=== PATIENT | male | born 1985 ===

== ENCOUNTER 2021-05-11 07:10 | Emergency (ER) | payer MEDICAID ==
[~2021-05-11] VITALS: Ht 167.6 cm; Wt 65.0 kg
[~2021-05-11 07:10] MED LIST: CLIN-97 PO; ONDA4TAB6 PO; PSEU120T84 PO
[2021-05-11 07:33] VITALS: BP 116/86
== END 2021-05-11 10:50 | disposition left against medical advice (07) ==
LOC: ER 07:10
DX: Z53.21 Procedure and treatment not carried out due to patient leaving prior to being seen by health care provider (principal)